=== PATIENT | female | born 1965 | race African-American/Black ===

== ENCOUNTER 2016-09-12 19:32 | Emergency (ER) | payer OTHER ==
[~2016-09-12] VITALS: Ht 162.6 cm; Wt 99.8 kg
[~2016-09-12 19:32] MED LIST: COLACE100 MG PO; FEOSOL325 M1 PO; HYDROCHLOROTHIA25 M2 PO; HYDROCODONE-AP1 EAC6 PO; IBUPROFEN 600600 M1 PO; OMEPRAZOLE40 MG PO; ONDANSETRON HCL4 M2 PO; PROAIR HFA8.5 GM INH; SYMBICORT160 MCG/4. INH; ZOFRAN ODT4 MG PO
[2016-09-12] MEDS ORDERED: MOBIC15 MG PO (20:20)
[2016-09-12] MEDS ORDERED: NORCO 5-325 TA1 EACH PO (21:48)
[2016-09-12] MEDS ORDERED: TIZANIDINE HCL4 MG PO (21:48)
== END 2016-09-12 22:12 | disposition home or self-care (01) ==
LOC: ER 19:32
DX: M54.16 Radiculopathy, lumbar region (principal); K21.9 Gastro-esophageal reflux disease without esophagitis; J45.909 Unspecified asthma, uncomplicated; Z86.2 Personal history of diseases of the blood and blood-forming organs and certain disorders involving the immune mechanism; Z98.890 Other specified postprocedural states; Z90.710 Acquired absence of both cervix and uterus; Z90.49 Acquired absence of other specified parts of digestive tract; Z88.5 Allergy status to narcotic agent; Z88.8 Allergy status to other drugs, medicaments and biological substances

== ENCOUNTER → 2016-10-05 | Outpatient (CLI) | payer OTHER ==
[~2016-10-05] MED LIST changes: +MOBIC15 MG PO; +NORCO 5-325 TA1 EACH PO; +TIZANIDINE HCL4 MG PO
== END ==
LOC: MRI 07:19
DX: M47.896 Other spondylosis, lumbar region (principal)

== ENCOUNTER → 2016-10-27 | Outpatient (CLI) | payer OTHER ==
[~2016-10-27] VITALS: Ht 162.6 cm; Wt 106.6 kg
[~2016-10-27] MED LIST changes: +HYDROCODON-ACE1 EAC7 PO; +TRAMADOL 50 MG50 MG PO; +ZANAFLEX4 MG PO
[2016-10-27 13:47] VITALS: BP 139/85
== END | disposition home or self-care (01) ==
LOC: PAIN 06:57
DX: M54.16 Radiculopathy, lumbar region (principal); G89.29 Other chronic pain; M54.9 Dorsalgia, unspecified; I10 Essential (primary) hypertension; J45.998 Other asthma; K21.9 Gastro-esophageal reflux disease without esophagitis; E66.09 Other obesity due to excess calories; Z68.41 Body mass index [BMI] 40.0-44.9, adult; Z90.710 Acquired absence of both cervix and uterus; Z98.890 Other specified postprocedural states; Z79.899 Other long term (current) drug therapy; Z88.8 Allergy status to other drugs, medicaments and biological substances

== ENCOUNTER → 2016-12-01 | Outpatient (CLI) | payer OTHER | LOC: CAT 10:53 | DX: K76.89 Other specified diseases of liver (principal) ==

== ENCOUNTER → 2016-12-29 | Outpatient (CLI) | payer OTHER ==
[~2016-12-29] VITALS: Ht 162.6 cm; Wt 105.2 kg
--- NOTE | ~2016-12-29 | HPC ---
[facility] [place] [address] PAIN MANAGEMENT CONSULTATION Name: ERIC SANTOS Room #: REG [facility] Lisa#: [id number] Admission: 12/29/16 Attend Phys: Kirt Newberry DO Discharge: Date of : 65 Report #: [id number] THIS REPORT FOR: //name// CC: Grover Newberry The patient is a pleasant 51-year-old female, prior seen in the pain clinic on 10/27/2016, diagnosed with lumbar radiculopathy, component of axial back pain, reactive airway disease, and gastroesophageal reflux, BMI elevated at 40.3. The patient was continued on meloxicam 15 mg, generated a prescription for tramadol 50 mg 1 tablet q. 4 hours as needed for pain, limit 60 tablets. He was given epidural injection at L4-L5. The patient returns to pain clinic today nearly 2 months after that injection. She does note she had good incremental improvement of pain, specifically noting subjective improvement of 80% for greater than a month, but the pain is beginning to recur, still much better than baseline. She rates her pain fairly nominal today, but it was a 7 on VAS yesterday. PHYSICAL EXAMINATION: This is a 51-year-old female, BMI is elevated at 39.8 kilograms per meter squared. Blood pressure is elevated as well, 158/94, pulse 84, respirations ARE 14. Cranial nerves 2-12 are grossly intact. Pupils equal, react to light and accommodation. Extraocular muscles are intact. Rises from chair using armrest. Modestly antalgic gait. Diffuse tenderness across the low back. Lumbar flexion is modestly limited. Lower extremity strength shows slight decreased left hip flexion and plantar flexion strength. Modestly positive straight leg raise on the left at 30 degrees. Deep tendon reflexes are preserved. DIAGNOSTIC STUDIES: MRI from 10/05/2016 notes L4-L5 to have a broad-based disk bulge with facet hypertrophy causing mild recess stenosis, some bilateral compromise L5 nerve roots with some impingement bilaterally. ASSESSMENT: Symptomatic lumbar radiculopathy by clinical exam, incremental improvement following epidural injection. RECOMMENDATIONS: 1. Renew tramadol today, continue meloxicam. 2. We will seek authorization for repeat epidural injection under fluoroscopy. Tentatively plan for procedure next week, 01/05/2017. By: [id number] Kirt Newberry DO /nt
[2016-12-29 10:59] VITALS: BP 158/94
== END | disposition home or self-care (01) ==
LOC: PAIN
DX: M54.16 Radiculopathy, lumbar region (principal); J45.909 Unspecified asthma, uncomplicated; K21.9 Gastro-esophageal reflux disease without esophagitis; Z68.41 Body mass index [BMI] 40.0-44.9, adult

== ENCOUNTER → 2017-01-11 | Outpatient (CLI) | payer OTHER ==
[~2017-01-11] VITALS: Ht 162.6 cm; Wt 106.1 kg
--- NOTE | ~2017-01-11 | HPC ---
[facility] [place] [place] [address] PAIN MANAGEMENT CONSULTATION Name: ERIC SANTOS Room #: REG [facility] Gonzalez#: [id number] Admission: 01/11/17 Attend Phys: Kirt Newberry DO Discharge: Date of : 65 Report #: [id number] THIS REPORT FOR: //name// CC: Grover Newberry The patient is a 51-year-old female, prior seen 12/29/2016, with symptomatic lumbar radiculopathy. She had 80% relief following the prior injection, we sought authorization for repeat epidural injection under fluoroscopy today. She returns to pain clinic today noting pain in the low back, bilateral legs, it is a 6 on VAS. She wished to repeat the injection as we discussed at last visit. Vital signs show nominal hypertension 149/90, pulse 93, and respirations are 18. ASSESSMENT: Symptomatic lumbar radiculopathy. PROCEDURE: Lumbar epidural injection under fluoroscopy. PROCEDURE NOTE: After both written and informed consent to include risk of spinal cord damage, increased pain, weakness and dural puncture, the patient was taken to the fluoroscopy suite, placed in the prone position. After sterile prep and drape, a skin wheal with lidocaine was raised. A 22-gauge epidural Tuohy needle was inserted in the midline at L4-L5 with good loss to resistance. Negative aspiration for cerebrospinal fluid or blood was noted. Then 1 mL of Omnipaque under biplanar fluoroscopy showed good spread within the epidural space. This was followed with 80 mg of triamcinolone plus 1 mL of 1.5% preservative-free Xylocaine, 0.5 mL Xylocaine was then injected to flush the needle; it was removed. The patient was monitored for an appropriate period of time and discharged in good and stable condition. Follow up in 3 weeks for reevaluation. By: [id number] Kirt Newberry DO /nt
[2017-01-11 14:10] VITALS: BP 149/90
== END | disposition home or self-care (01) ==
LOC: PAIN 01-04 12:52
DX: M54.16 Radiculopathy, lumbar region (principal)

== ENCOUNTER → 2017-04-05 | Outpatient (CLI) | payer OTHER ==
[~2017-04-05] VITALS: Ht 162.6 cm; Wt 106.1 kg
[~2017-04-05] MED LIST changes: +MS CONTIN15 MG PO
--- NOTE | ~2017-04-05 | HPC ---
[facility] [place] [address] PAIN MANAGEMENT CONSULTATION Name: ERIC SANTOS Room #: REG [facility] Lisa#: [id number] Admission: 04/05/17 Attend Phys: Kirt Newberry DO Discharge: Date of : 65 Report #: [id number] THIS REPORT FOR: //name// CC: Grover Newberry DATE OF SERVICE: 04/05/2017 The patient is a 51-year-old female, prior seen in the pain clinic 01/11/2017, diagnosed with symptomatic lumbar radiculopathy. She had 2 lumbar epidural injections, the second being 01/11/2017. The patient returns to pain clinic today noting the injection afforded 90% relief for 2 months, pain has begun to recur. Prior pain had been more left than right-sided, now it is little more right than left-sided. Low back, bilateral legs, in L4-L5 distribution. She notes the pain is a 5 on a VAS. Some subjective lancinating pain and weakness. She notes the pain is exacerbated with sitting, walking and vacuuming. She describes an aching sensation in her lower legs. PHYSICAL EXAMINATION: Shows a 51-year-old female, BMI is elevated at 40.1 kilograms per meter squared. Blood pressure 133/88, pulse 83, respirations 16. Rises from chair using armrest, markedly antalgic gait. Tender in the low back, tender over the SI joints bilaterally. Patellar and Achilles reflexes are preserved. Straight leg raise is negative at this time. Exquisitely tender over the right trochanteric bursa, gluteus gigi and gluteus medius. Passive rotation of the hips exacerbates pain. No true Lynda test is noted at this time. MEDICATION LIST: Reconciled and includes tramadol for pain, meloxicam 15 mg daily. ASSESSMENT: Symptomatic lumbar radiculopathy by clinical exam and history with primarily symptoms pointing towards myofascial pain at this time. RECOMMENDATIONS: 1. X-rays of the right hip was obtained. Radiologist reading notes no acute pathology, I personally reviewed the images, it does show some roughening of the contour of the acetabulum, right side. ASSESSMENT: Myofascial pain by clinical exam and history, history of lumbar radiculopathy, moderate degenerative joint disease in the right hip. RECOMMENDATION: We will seek authorization for trigger point injections, right gluteus gigi, gluteus medius and over the trochanteric bursa. [address] [address] PAIN MANAGEMENT CONSULTATION Name: ERIC SANTOS Room #: REG [facility]#: [id number] Admission: 04/05/17 Attend Phys: Kirt Newberry DO Discharge: Date of : 65 Report #: [id number] Continue current medication unchanged. <ELECTRONICALLY SIGNED> By: Kirt Newberry DO 04/06/17 0650 1706 [id number] Kirt Newberry DO /manisha
[2017-04-05 13:25] VITALS: BP 133/88
== END ==
LOC: PAIN 02-01 07:23
DX: M16.12 Unilateral primary osteoarthritis, left hip (principal); M54.16 Radiculopathy, lumbar region; M25.752 Osteophyte, left hip; M79.1 Myalgia

== ENCOUNTER → 2017-04-13 | Outpatient (CLI) | payer OTHER ==
[~2017-04-13] VITALS: Ht 162.6 cm; Wt 105.7 kg
[~2017-04-13] MED LIST changes: +MEDROLDOSEPACK PO; +PREDNISONE 10 M10 MG PO; +TESSALON PERLE100 MG PO; +VOLTAREN GEL 1100 G2 TOP
--- NOTE | ~2017-04-13 | HPC ---
[facility] [place] [address] PAIN MANAGEMENT CONSULTATION Name: ERIC SANTOS Room #: REG [facility] Lisa#: [id number] Admission: 04/13/17 Attend Phys: Ivan Feliciano MD Discharge: Date of : 65 Report #: [id number] THIS REPORT FOR: //name// CC: Grover James DATE OF SERVICE: 04/13/2017 FOLLOWUP COMPLAINT: Low back pain. HISTORY OF PRESENT ILLNESS: The patient is a 52-year-old female who has been seen in the Pain Clinic by Kirt Newberry. The patient has history of lumbar radiculopathy in the past. She gleaned great significant benefit from the injections in the past. Now, she is beginning to experience more pain, which is right-sided and notes that the pain is exacerbated when she is walking, sitting, vacuuming and performing activities of daily living. She notes pain and discomfort involving her right hip. ALLERGIES: MORPHINE, BETADINE. CURRENT MEDICATIONS: Ultram 50 mg every 4-6 hours p.r.n., meloxicam 15 mg daily, hydrochlorothiazide 25 mg, albuterol/ProAir 1-2 puffs q.4-6h. as needed, Symbicort 60/4.5 inhaler b.i.d., omeprazole 40 mg prior to meals. PHYSICAL EXAMINATION: VITAL SIGNS: Blood pressure 131/84, pulse 94, respiratory rate 16, room air saturation 98%. Height 5 feet 4 inches, weight 233 pounds, BMI is 40. The patient has not fallen since we saw her last. HEENT: Unremarkable. NECK: Without adenopathy. CHEST: Clear to auscultation. HEART: Regular rate. ABDOMEN: Protuberant. The patient has pain in the lower back. Pain radiates down into the right hip. Palpation in this area reproduces pain and discomfort in the area of the right posterior superior iliac spine in the area of the gluteus gigi and latissimus dorsi insertions. Past radiologic report indicate no acute pathology. IMPRESSION: 1. Myofascial pain. 2. History of lumbar radicular pain, improved. 3. Moderate degenerative joint disease of the right hip. RECOMMENDATIONS: We discussed treatment options with the patient. [address] [address] PAIN MANAGEMENT CONSULTATION Name: ERIC SANTOS Room #: REG [facility].#: [id number] Admission: 04/13/17 Attend Phys: Ivan Feliciano MD Discharge: Date of : 65 Report #: [id number] benefits of a trigger point injection were discussed. Possible complications which could include, but are not limited to infection, increased muscle soreness, bleeding were discussed. The patient elects to proceed. PROCEDURE NOTE: The patient was placed in the sitting position. Her back was sterilely prepped with a chlorhexidine solution and allowed to dry. A 25-gauge needle was then advanced into the area of the trigger point near the right posterior superior iliac spine area and the gluteus gigi. The patient states that this did reproduce her discomfort. Total of 10 mL of 0.5% bupivacaine and 40 mg triamcinolone was injected. The patient's pain decreased from 6 to 0 at the time of her discharge. There were no problems with weakness in her legs or other concerns at the time of discharge. She will follow up in the future as needed. We would like to thank you for letting us participate in her care. We hope she continues to improve. <ELECTRONICALLY SIGNED> By: Ivan Feliciano MD 04/25/17 0837 1341 0003 Ivan Feliciano MD /[facility]
[2017-04-13 15:01] VITALS: BP 131/84
== END | disposition home or self-care (01) ==
LOC: PAIN 07:27
DX: M79.1 Myalgia (principal); M54.16 Radiculopathy, lumbar region; M16.11 Unilateral primary osteoarthritis, right hip; Z88.6 Allergy status to analgesic agent; Z88.8 Allergy status to other drugs, medicaments and biological substances; Z79.899 Other long term (current) drug therapy; G89.29 Other chronic pain

== ENCOUNTER → 2017-04-30 | Outpatient (CLI) | payer OTHER ==
[~2017-04-30] VITALS: Ht 162.6 cm; Wt 102.5 kg
--- NOTE | ~2017-04-30 | HPC ---
[facility] [place] [address] PAIN MANAGEMENT CONSULTATION Name: ERIC SANTOS Room #: REG [facility] Gonzalez#: [id number] Admission: 04/30/17 Attend Phys: Kirt Newberry DO Discharge: Date of : 65 Report #: [id number] THIS REPORT FOR: //name// CC: Grover Newberry The patient is a very pleasant 52-year-old female initially seen on 10/27/2016 for symptomatic lumbar radiculopathy, had two lumbar epidural injections on 10/27 and again on 01/11 with overall improvement in baseline pain. She was seen in followup in 03/2017 and was having some ongoing pain primarily in the right hip and trochanteric area. We sought authorization for and received approval for a trigger point injection at this area. She was seen by my partner, Dr. Jai Feliciano on 04/13/2017. He did essentially a right trochanteric bursa injection and injection into the gluteus gigi and latissimus dorsi muscles on that right side with significant overall improvement of baseline pain. She does return to the pain clinic today noting pain is fairly nominal, rates about a 2 on a VAS. Pain primarily is over the right trochanteric bursa little more so than the left, modestly positive on both sides. She continues with a little bit of tramadol for pain and meloxicam daily. PHYSICAL EXAMINATION: Shows pleasant 52-year-old female, moderately obese with a BMI of 38.8 kilograms per meter squared. Vital signs are stable. Gait is tandem. Lumbar flexion is good to 90 degrees. Lower extremity strength is symmetric. Straight leg raise is negative. She is tender over the right greater than left trochanteric bursa with some trigger points identifiable in the gluteus gigi bilaterally. ASSESSMENT: Symptomatic myofascial pain in the patient with prior history of lumbar radiculopathy well treated with two epidural injections requiring complex medication management on low dose tramadol 50 mg 1 tablet up to 2-3 times a day. I have taken the liberty of renewing prescription for 75 tramadol with one refill. We will seek authorization for trigger point injections at next visit. <ELECTRONICALLY SIGNED> By: Kirt Newberry DO 05/02/17 0816 1610 0315 Kirt Newberry DO /nt
[2017-04-30 14:32] VITALS: BP 126/80
== END ==
LOC: PAIN 07:07
DX: M54.16 Radiculopathy, lumbar region (principal); M79.1 Myalgia; Z79.899 Other long term (current) drug therapy

== ENCOUNTER → 2017-05-28 | Outpatient (CLI) | payer OTHER ==
[~2017-05-28] VITALS: Ht 162.6 cm; Wt 104.8 kg
--- NOTE | ~2017-05-28 | HPC ---
[facility] [place] [address] PAIN MANAGEMENT CONSULTATION Name: ERIC SANTOS Room #: REG [facility] Gonzalez#: [id number] Admission: 05/28/17 Attend Phys: Kirt Newberry DO Discharge: Date of : 65 Report #: [id number] THIS REPORT FOR: //name// CC: Grover Newberry The patient is a 52-year-old female prior seen in the pain clinic on 04/30/2017, diagnosed with myofascial pain, lumbar radiculopathy and component of axial back pain. Last visit, we continued the patient on some tramadol and sought authorization for trigger point injections x 3. She has pain in the butt, in the gluteal area radiating to the right hip. She has trigger points identified in the left and right gluteus gigi and right gluteus medius. The patient wished to proceed with trigger point injections today. ASSESSMENT: Symptomatic myofascial pain. PROCEDURE: Trigger point x 3, left gluteus gigi, right gluteus gigi and right gluteus medius muscle groups. PROCEDURE NOTE: After written informed consent was obtained, the patient was placed in the prone position. Trigger points were identified and the three above-mentioned muscle groups were identified, cleansed with alcohol. Using a 25-gauge needle, 40 mg triamcinolone plus 5 mL of 0.5% preservative-free bupivacaine plus 5 mL of 1.5% preservative-free Xylocaine with 1:200,000 epi was injected equally amongst the three trigger points. All needles were removed. The area was cleansed and Band-Aids applied. We talked about stretches for these muscles today. The patient was told to use ice today. Followup is as needed. <ELECTRONICALLY SIGNED> By: Kirt Newberry DO 05/30/17 0724 1540 0325 Kirt Newberry DO /nt
[2017-05-28 14:01] VITALS: BP 131/80
== END | disposition home or self-care (01) ==
LOC: PAIN 07:41
DX: M79.1 Myalgia (principal); G89.29 Other chronic pain; Z88.8 Allergy status to other drugs, medicaments and biological substances; Z90.710 Acquired absence of both cervix and uterus; Z98.890 Other specified postprocedural states; Z79.899 Other long term (current) drug therapy

== ENCOUNTER → 2017-08-02 | Outpatient (CLI) | payer OTHER ==
[~2017-08-02] VITALS: Ht 162.6 cm; Wt 107.0 kg
[~2017-08-02] MED LIST changes: -MEDROLDOSEPACK PO; -VOLTAREN GEL 1100 G2 TOP
--- NOTE | ~2017-08-02 | HPC ---
[facility] [place] [address] PAIN MANAGEMENT CONSULTATION Name: ERIC SANTOS Room #: REG [facility] Gonzalez#: [id number] Admission: 08/02/17 Attend Phys: Kirt Newberry DO Discharge: Date of : 65 Report #: [id number] THIS REPORT FOR: //name// CC: Grover Newberry The patient is a very pleasant 52-year-old female typically treated for axial back pain, lumbar radiculopathy, myofascial pain, DJD/OA right hip and prior component of right hip trochanteric bursitis. Last seen in the pain clinic on 05/28/2017. I did trigger point injections of right gluteus medius, right gluteus gigi and left gluteus medius. That low back, buttock pain has improved. She prior had a right trochanteric bursa injection by Dr. Feliciano around April with overall improvement of pain. The pain has recurred in the right hip and is exacerbated with any weightbearing. PHYSICAL EXAMINATION: Shows exquisite pain with rotation of the hip greater than about 15-20 degrees. Has some tenderness over the lateral aspect of the hip, but really no significant pain with resistance to active abduction. Pain does radiate into the groin. I looked at the x-rays we obtained of that right hip. While there is no osseous pathology, i.e., fracture, there is decreased joint space height with a little roughing of the trochanteric head. This does appear to be a component of osteoarthritis. RECOMMENDATIONS: Discussion with the patient today about therapeutic option. We have elected to seek authorization for right hip joint injection under fluoroscopy at the earliest possible date (next week?). Continue tramadol for pain. Discharged in good and stable condition. Follow up for right hip injection under fluoroscopy. <ELECTRONICALLY SIGNED> By: Kirt Newberry DO 08/04/17 0954 1519 [id number] Kirt Newberry DO /nt
[2017-08-02 15:02] VITALS: BP 141/91
== END ==
LOC: PAIN 07:09
DX: M54.16 Radiculopathy, lumbar region (principal); M70.61 Trochanteric bursitis, right hip; Y93.89 Activity, other specified

== ENCOUNTER → 2017-08-10 | Outpatient (CLI) | payer OTHER ==
[~2017-08-10] VITALS: Ht 162.6 cm; Wt 105.7 kg
--- NOTE | ~2017-08-10 | HPC ---
[facility] [place] [address] PAIN MANAGEMENT CONSULTATION Name: ERIC SANTOS Room #: REG [facility] Gonzalez#: [id number] Admission: 08/10/17 Attend Phys: iKrt Newberry DO Discharge: Date of : 65 Report #: [id number] THIS REPORT FOR: //name// CC: Grover Newberry DATE OF SERVICE: 08/10/2017 The patient is a pleasant 52-year-old female, prior seen in the pain clinic on 08/02/2017, diagnosed with osteoarthritis of the right hip, history of lumbar radiculopathy, axial back pain, myofascial pain requiring complex medication management. We had sought authorization for right hip injection under fluoroscopy. The patient returns to the pain clinic today noting pain continues to be in the right hip, exacerbated with standing, walking and bending. She rates her subjective pain score 5 on a VAS. She wished to proceed with hip joint injection under fluoroscopy as discussed at last visit. ASSESSMENT: Hip Osteoarthritis, Right PROCEDURE: After written informed consent was obtained including risk of infection and increased pain, the patient wished to proceed. She was taken to the fluoroscopy suite and placed in the supine position. Skin overlying the right groin was cleansed with ChloraPrep. Skin wheal with Xylocaine was raised. A 22-gauge stylet needle was placed to contact proximal aspect of the femoral head in the acetabulum. Negative aspiration was accomplished. Initial injection showed spread within the fibrous ligament. Needle was repositioned. Second injection showed good spread within the hip joint proper. This was followed with 40 mg of triamcinolone plus 2 mL of 0.5% preservative free bupivacaine. Needle was removed, the area was cleansed and Band-Aid was applied. The patient monitored for an appropriate period of time and discharged in good and stable condition. <ELECTRONICALLY SIGNED> By: Kirt Newberry DO 08/13/17 0830 1524 0332 Kirt Newberry DO /nt
[2017-08-10 13:44] VITALS: BP 150/84
== END | disposition home or self-care (01) ==
LOC: PAIN 07:01
DX: M16.11 Unilateral primary osteoarthritis, right hip (principal); G89.29 Other chronic pain; Z79.891 Long term (current) use of opiate analgesic; Z88.8 Allergy status to other drugs, medicaments and biological substances; Z90.710 Acquired absence of both cervix and uterus; Z79.899 Other long term (current) drug therapy; Z98.890 Other specified postprocedural states

== ENCOUNTER → 2018-01-30 | Outpatient (CLI) | payer OTHER ==
[~2018-01-30] VITALS: Ht 162.6 cm; Wt 105.1 kg
[~2018-01-30] MED LIST changes: +MEDROLDOSEPACK PO; +VOLTAREN GEL 1100 G2 TOP
[2018-01-30 13:49] VITALS: BP 142/82
== END ==
LOC: PAIN 07:19
DX: M25.552 Pain in left hip (principal); M25.562 Pain in left knee; M79.652 Pain in left thigh; G89.29 Other chronic pain; Z79.899 Other long term (current) drug therapy

== ENCOUNTER → 2018-05-06 | Outpatient (CLI) | payer OTHER | LOC: RAD 01:11 | DX: Z12.31 Encounter for screening mammogram for malignant neoplasm of breast (principal) ==

== ENCOUNTER → 2019-05-05 | Outpatient (CLI) | payer OTHER | LOC: BC 01:04 | DX: Z12.31 Encounter for screening mammogram for malignant neoplasm of breast (principal) ==

== ENCOUNTER → 2020-05-03 | Outpatient (CLI) | payer OTHER | LOC: RAD 15:16 | PROVIDERS: ATTEND Family Medicine | DX: Z12.31 Encounter for screening mammogram for malignant neoplasm of breast (principal) ==

== ENCOUNTER → 2020-10-22 | Outpatient (CLI) | payer OTHER ==
[~2020-10-22] VITALS: Ht 162.6 cm; Wt 102.1 kg
[~2020-10-22] MED LIST changes: +ALLEGRA-D 12 H1 EAC1 PO; +HYDROCHLOROTHIA25 M1 PO; +MELOXICAM15 MG PO; +ULTRAM50 MG PO
[2020-10-22 11:03] VITALS: BP 125/76
--- NOTE | 2020-10-22 11:29 | NUR ---
Pain Clinic Assessment: 1. History of Osteoarthritis: Left Lower Extremity Right Lower Extremity History of Rheumatoid Arthritis: Not Applicable 2. Height: 5 ft. 4 in. 162.6 cm. Weight: 225.0 lb. oz. 102.060 kg. Patient's BMI: 38.6 3. Vital Signs: BP: 125/76 Pulse: 95 Resp: 16 Temp: 02 Sat: 100 ECG Mon: 4. Pain Intensity: 6 5. Fall Risk: Dizziness: N Needs help standing or walking: N Fallen in the last 3 months: N Fall risk comments: 6. Patient on Blood Thinner: None 7. History of Hypertension: Y 8. Opioid Therapy greater than 6 weeks: N Opiate Contract Signed: 9. Risk Assessment Tool Provided: 1 LOW RISK 10. Functional Assessment Tool: 11. Recreational Drug Use: Never Drug Type: Tobacco Use: Never Smoker Tobacco Type: Amount or Packs/day: How Many Years: Alcohol Use: Yes Frequency: Special Occasions Quant: 2
== END | disposition home or self-care (01) ==
LOC: PAIN 08:14
PROVIDERS: ATTEND Anesthesiology Pain Medicine
DX: M54.16 Radiculopathy, lumbar region (principal); G89.29 Other chronic pain; I10 Essential (primary) hypertension; M19.90 Unspecified osteoarthritis, unspecified site; J45.909 Unspecified asthma, uncomplicated; D64.9 Anemia, unspecified; K21.9 Gastro-esophageal reflux disease without esophagitis; Z98.890 Other specified postprocedural states; Z79.899 Other long term (current) drug therapy; Z98.51 Tubal ligation status; Z90.49 Acquired absence of other specified parts of digestive tract; Z88.8 Allergy status to other drugs, medicaments and biological substances

== ENCOUNTER → 2021-01-24 | Outpatient (CLI) | payer OTHER | LOC: RAD 12:51 | PROVIDERS: ATTEND Pediatrics | DX: R06.00 Dyspnea, unspecified (principal) ==

== ENCOUNTER → 2021-02-25 | Outpatient (CLI) | payer OTHER ==
[~2021-02-25] VITALS: Ht 162.6 cm; Wt 105.8 kg
[2021-02-25 09:24] VITALS: BP 128/77
--- NOTE | 2021-02-25 09:55 | NUR ---
Pain Clinic Assessment: 1. History of Osteoarthritis: Left Lower Extremity Right Lower Extremity History of Rheumatoid Arthritis: Not Applicable 2. Height: 5 ft. 4 in. 162.6 cm. Weight: 233.2 lb. oz. 105.779 kg. Patient's BMI: 40.0 3. Vital Signs: BP: 128/77 Pulse: 99 Resp: 16 Temp: 02 Sat: 100 ECG Mon: 4. Pain Intensity: 7-bending 1-sitting 5. Fall Risk: Dizziness: N Needs help standing or walking: N Fallen in the last 3 months: N Fall risk comments: 6. Patient on Blood Thinner: None 7. History of Hypertension: Y 8. Opioid Therapy greater than 6 weeks: N Opiate Contract Signed: 9. Risk Assessment Tool Provided: 1 LOW RISK 10. Functional Assessment Tool: 11. Recreational Drug Use: Never Drug Type: Tobacco Use: Never Smoker Tobacco Type: Amount or Packs/day: How Many Years: Alcohol Use: Yes Frequency: Special Occasions Quant:
== END | disposition home or self-care (01) ==
LOC: PAIN 09:07
PROVIDERS: ATTEND Anesthesiology Pain Medicine
DX: M54.16 Radiculopathy, lumbar region (principal); G89.29 Other chronic pain; I10 Essential (primary) hypertension; K21.9 Gastro-esophageal reflux disease without esophagitis; J45.909 Unspecified asthma, uncomplicated; D64.9 Anemia, unspecified; M19.90 Unspecified osteoarthritis, unspecified site; Z98.890 Other specified postprocedural states; Z79.899 Other long term (current) drug therapy; Z90.49 Acquired absence of other specified parts of digestive tract; Z90.710 Acquired absence of both cervix and uterus; Z98.51 Tubal ligation status; Z88.8 Allergy status to other drugs, medicaments and biological substances

== ENCOUNTER 2021-04-21 19:41 | Emergency (ER) | payer OTHER ==
[~2021-04-21] VITALS: Ht 165.1 cm; Wt 86.2 kg
[2021-04-22 00:12] LABS: HEMATOCRIT 33.9 % (37.0-47.0); HEMOGLOBIN 10.9 gm/dL (12.0-15.0); MCH 25.7 pg (26.0-34.0); MCV 80.1 fL (80.0-100.0); RBC 4.23 mil/uL (4.20-5.00); RDW 17.5 % (10.5-14.5); WBC 14.9 thou/uL (4.0-11.0)
[2021-04-22 00:23] LABS: CALCIUM 9.5 mg/dL (8.5-10.1); CREATININE 0.8 mg/dL (0.6-1.0); POTASSIUM 3.8 mmol/L (3.5-5.1)
[2021-04-22 01:10] LABS: URINE BILIRUBIN NEGATIVE (Negative); URINE BLOOD NEGATIVE (Negative); URINE CLARITY CLEAR; URINE COLOR YELLOW; URINE GLUCOSE-RANDOM* NEGATIVE (Negative); URINE KETONES NEGATIVE (Negative); URINE LEUKOCYTES-REFLEX NEGATIVE (Negative); URINE NITRITE-REFLEX NEGATIVE (Negative); URINE PROTEIN (DIPSTICK) NEGATIVE (Negative); URINE UROBILINOGEN 0.2 E.U./dl (0.2-1.0)
[2021-04-22 02:01] VITALS: BP 151/70
--- NOTE | 2021-04-22 07:47 | EKG ---
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 04/22/21 0746 2117 16 Nacho Reyes MD, FACC /EPI
== END 2021-04-22 01:50 | disposition home or self-care (01) ==
LOC: ER 19:41
PROVIDERS: Emergency Medicine
DX: R55 Syncope and collapse (principal); J45.909 Unspecified asthma, uncomplicated; Z98.890 Other specified postprocedural states; Z90.710 Acquired absence of both cervix and uterus; Z90.49 Acquired absence of other specified parts of digestive tract; Z98.51 Tubal ligation status; Z79.51 Long term (current) use of inhaled steroids; Z79.899 Other long term (current) drug therapy; Z88.5 Allergy status to narcotic agent; Z88.8 Allergy status to other drugs, medicaments and biological substances; Z91.09 Other allergy status, other than to drugs and biological substances; Z88.6 Allergy status to analgesic agent; Z91.041 Radiographic dye allergy status

== ENCOUNTER → 2021-05-02 | Outpatient (CLI) | payer OTHER | LOC: BC 09:47 | PROVIDERS: ATTEND Family Medicine | DX: Z12.31 Encounter for screening mammogram for malignant neoplasm of breast (principal); N64.89 Other specified disorders of breast; N63.20 Unspecified lump in the left breast, unspecified quadrant ==

== ENCOUNTER → 2021-05-06 | Outpatient (CLI) | payer OTHER | LOC: ULTRA 05-05 09:45 | PROVIDERS: ATTEND Family Medicine | DX: N63.21 Unspecified lump in the left breast, upper outer quadrant (principal); N60.02 Solitary cyst of left breast ==

== ENCOUNTER → 2021-05-25 | Outpatient (CLI) | payer OTHER | LOC: CAT 12:48 | PROVIDERS: ATTEND Internal Medicine Cardiovascular Disease | DX: Z13.6 Encounter for screening for cardiovascular disorders (principal); I25.10 Atherosclerotic heart disease of native coronary artery without angina pectoris; E78.00 Pure hypercholesterolemia, unspecified ==

== ENCOUNTER → 2021-05-25 | Outpatient (CLI) | payer OTHER ==
[~2021-05-25] VITALS: Ht 162.6 cm; Wt 105.2 kg
[2021-05-25 09:51] VITALS: BP 146/77
--- NOTE | 2021-05-25 09:56 | NUR ---
Pain Clinic Assessment: 1. History of Osteoarthritis: Left Lower Extremity Right Lower Extremity History of Rheumatoid Arthritis: Not Applicable 2. Height: 5 ft. 4 in. 162.6 cm. Weight: 232.0 lb. oz. 105.235 kg. Patient's BMI: 39.8 3. Vital Signs: BP: 146/77 Pulse: 96 Resp: 16 Temp: 02 Sat: 98 ECG Mon: 4. Pain Intensity: 5 5. Fall Risk: Dizziness: N Needs help standing or walking: N Fallen in the last 3 months: N Fall risk comments: 6. Patient on Blood Thinner: None 7. History of Hypertension: Y 8. Opioid Therapy greater than 6 weeks: N Opiate Contract Signed: 9. Risk Assessment Tool Provided: 1 LOW RISK 10. Functional Assessment Tool: 11. Recreational Drug Use: Never Drug Type: Tobacco Use: Never Smoker Tobacco Type: Amount or Packs/day: How Many Years: Alcohol Use: Yes Frequency: Quant:
== END | disposition home or self-care (01) ==
LOC: PAIN 08:19
PROVIDERS: ATTEND Anesthesiology Pain Medicine
DX: M54.16 Radiculopathy, lumbar region (principal); G89.29 Other chronic pain; M19.90 Unspecified osteoarthritis, unspecified site; Z98.890 Other specified postprocedural states; Z79.899 Other long term (current) drug therapy; Z90.710 Acquired absence of both cervix and uterus